=== PATIENT | female | born 1990 | race Caucasian/White ===

== ENCOUNTER 2018-01-31 05:28 | Inpatient (IN) ==
[2018-01-31] MEDS ORDERED: Morphine Sulfate PF Inj 5 MG/10 ML Ampul ONE (06:48)
[2018-01-31] MEDS ORDERED: Lidocaine PF 1% Inj 5 ML Vial ONE ×2 (06:48→13:37)
[2018-01-31] MEDS ORDERED: Lidocaaine 1.5%/Epinephrine 1:200,000 PF Inj 5 ML Amp ONE (06:48)
[2018-01-31 06:59] LABS: Baso % (Auto) 0.2 % (0.0-2.0); Eos # (Auto) 0.1 th/mm3 (0.0-0.4); Eos % (Auto) 1.3 % (0.0-4.0); Hematocrit 31.7 % (35.0-46.0); Hemoglobin 11.1 gm/dL (11.6-15.3); Lymph % (Auto) 27.6 % (9.0-44.0); Mean Corpuscular HGB Conc 35.1 % (32.0-36.0); Mean Corpuscular Hemoglobin 33.8 pg (27.0-34.0); Mean Corpuscular Volume 96.3 fL (80.0-100.0); Mean Platelet Volume 8.8 fL (7.0-11.0); Mono # (Auto) 0.4 th/mm3 (0.0-0.9); Mono % (Auto) 6.1 % (0.0-8.0); Neut # (Auto) 4.8 th/mm3 (1.8-7.7); Neut % (Auto) 64.8 % (16.0-70.0); Platelet Count 259 th/mm3 (150-450); Red Cell Distribution Width 13.9 % (11.6-17.2); White Blood Count 7.3 th/mm3 (4.0-11.0)
--- NOTE | 2018-01-31 07:14 | P.OBGPN ---
S: Doing well, no complaints O: Exam: /-2/midposition/soft. AROM this check with clear fluid. FHTs: 150s, moderate variability, accelerations present, no decelerations TOCO: Irregular contractions A/P 27-year-old at 39 weeks and 4 days by L/7 here originally for a ECV and induction if successful, however upon presentation was found to be cephalic. 1. IUP: Category 1 tracing -GBS NEG -Female fetus "Tiff" 2. Induction of labor: Secondary to maternal request, cervix favorable, AROM this check, allow to eat breakfast, begin Pitocin to follow, patient will desire epidural. Anticipate . She had uncomplicated prior vaginal delivery 3. Tobacco use: Have been counseled for cessation throughout , she has cut down 4. Glucose intolerance: Failed 1 hour, passed 3-hour - EFW: 3109g (40%)
[2018-01-31] MEDS ORDERED: fentaNYL Citrate Inj 100 MCG/2 ML Ampul IV.PUSH PRN ×2 (07:15)
[2018-01-31] MEDS ORDERED: Oxytocin 30 Units/500ml Premix 30 UNITS/500 ML BAG IV.SIG PRN (07:15)
[2018-01-31] MEDS ORDERED: Sodium Chlor 0.9% Inj 500 ML IV.SIG PRN (07:15)
[2018-01-31] MEDS ORDERED: Naloxone Inj 0.4 MG/ML Vial IV.PUSH PRN ×2 (07:15→17:01)
[2018-01-31] MEDS ORDERED: Oxytocin 30 Units/500ml Premix 30 UNITS/500 ML BAG IV.SIG ONE (07:15)
[2018-01-31] MEDS ORDERED: Citric Acid/Sodium Citrate Liq 30 ML UDC PO SCH (07:15)
[2018-01-31] MEDS ORDERED: Sod Chloride 0.9% Inj 1,000 ML IV.CONT PRN (07:15)
--- NOTE | 2018-01-31 07:23 | MH ---
cc: Stan Perez MD DATE OF ADMISSION: 01/31/2018 CHIEF COMPLAINT: malpresentation. HISTORY OF PRESENT ILLNESS: This patient is a 27-year-old G3, P1-0-1-1, who was seen in outpatient setting for routine OB visit on 01/29/2018. She complained of decreased movement and was measuring size less than dates and ultrasound revealed a fetus in the breech presentation. She had been cephalic 2 weeks prior. Her cervix was found to be favorable. We discussed options. The patient elected for ECV and induction versus ECV discharge home, await labor or planned . has been complicated by tobacco use, and glucose intolerance. PAST MEDICAL HISTORY: Tobacco use. MEDICATIONS: vitamins. ALLERGIES: NO KNOWN DRUG ALLERGIES. SOCIAL HISTORY: About half a pack per day. No alcohol or drug use. KETTLE COOK HISTORY: No history of STDs. LMP 04/29/2017. OBSTETRICAL HISTORY: In 2007 elective termination with D and C; October 2013, 40-week female weighing 8 pounds 6 ounces was induction of labor without complications. FAMILY HISTORY: No pertinent positive family history. SURGICAL HISTORY: D and C for elective termination. PHYSICAL EXAMINATION: VITAL SIGNS: Based on an encounter from 01/29/2018, blood pressure 120/70, weight 182 pounds. GENERAL: Alert and oriented x3, resting comfortably in bed, in no acute distress. PULMONARY: Lungs are clear to auscultation bilaterally. No wheezes, crackles or rhonchi. CARDIOVASCULAR: Regular rate and rhythm. No murmurs, rubs or gallops. ABDOMEN: Soft, gravid, nontender. GENITOURINARY: Normal external female genitalia. Cervix 3 cm, 70% effaced, -1 station, soft and mid position. Vega score of 9. EXTREMITIES: No clubbing, cyanosis or edema. ASSESSMENT AND PLAN: This patient is a 27-year-old G3, P1-0-1-1 who will be at 39 weeks and 4 days by her sure LMP, consistent with a 6 week ultrasound with estimated due date of 02/03/2018, who presents for external cephalic version for malpresentation. 1. Intrauterine . Will be placed on monitoring upon presentation. 2. She is group B streptococcus negative. 3. Estimated weight on 01/29/2018 is 310 grams, 40th percentile, RAUL 23, placenta fundal. A female fetus named Tiff; plans to breastfeed. 4. malpresentation. Discussed options with the patient including external cephalic version with induction due to favorable cervix versus external cephalic version, discharge home and awaiting labor with possible spontaneous return to breech versus planned . The patient desired external cephalic version and induction. I discussed the risks and benefits of external cephalic version. We will plan for regional anesthesia and terbutaline. 5. Tobacco use. I counseled for cessation throughout the . The patient has cut down. ADDENDUM 01/31/18 7am: Patient was found to be cephalic upon presentation, she was artificially ruptured. Please see separate note for other details. MD MARILEE Puri/camille/marcela , 01:54 PM , 02:03 PM SHANE
[2018-01-31 07:41] LABS: Amorphous Sediment,Urine Few /hpf; Bacteria,Urine Occasional /hpf; Bilirubin,Urine Negative (Negative); Clarity,Urine Cloudy (Clear); Color,Urine Yellow (Yellw/Straw); Glucose,Urine (UA) Negative (Negative); Leukocyte Esterase,Urine Large (Negative); Mucus,Urine Few /lpf (Occasional); Nitrite,Urine Negative (Negative); Squamous Epithelial Cell,Urine 18 /hpf (0-5)
[2018-01-31 07:48] LABS: Amphetamine Urine With Conf Neg (Neg); Benzodiazepine Urine With Conf Neg (Neg)
[2018-01-31] MEDS ORDERED: fentaNYL 2MCG-Bupiv 0.125% Epi 150 ML EPIDURAL ONE (13:32)
[2018-01-31] MEDS ORDERED: Lidocaine 1%/Epinephrine 1:200,000 PF Inj 30 ML Vial ONE (13:37)
[2018-01-31] MEDS ORDERED: fentaNYL Citrate Inj 100 MCG/2 ML Ampul EPIDURAL ONE (14:25)
[2018-01-31] MEDS ORDERED: fentaNYL 2MCG-Bupiv 0.125% Epi 150 ML EPIDURAL PRN (14:25)
[2018-01-31] MEDS ORDERED: Measles/Mumps/Rubella Vaccine Inj 0.5 ML Vial SQ ONE (16:00)
[2018-01-31] MEDS ORDERED: Diphtheria/Tetanus/Pertussis Vaccine Inj 0.5 ML Syringe IM ONE (16:00)
--- NOTE | 2018-01-31 17:00 | P.OBDELI ---
Weeks Gestation: 38 Patient Started Active Labor: Yes Medical Induction of Labor: Yes Artificial Rupture of Membrane: Yes Anesthesia: Epidural Episiotomy: none Vaginal Delivery: Normal Presentation: Occiput anterior Nuchal Cord: x1 Delayed Cord Clamping (45 sec): Yes Placenta: Spontaneous delivery, Intact, 3 vessel cord Laceration: None Estimated blood loss (mL): 200 Infant: Female Infant Female A Delivery Date: 01/31/18 Delivery Time: 17:00 Weight: 7 kg score (1 min): 8 score (5 min): 9
[2018-01-31] MEDS ORDERED: Acetaminophen 325 MG Tablet PO PRN (17:01)
[2018-01-31] MEDS ORDERED: Witch Hazel 50%/Glyderin 12.5% 40 Pad Jar RECTAL PRN (17:01)
[2018-01-31] MEDS ORDERED: Benzocaine 20% Top Spray 60 ML Can TOPICAL PRN (17:01)
[2018-01-31] MEDS ORDERED: Oxytocin 30 Units/500ml Premix 30 UNITS/500 ML BAG IV.CONT PRN (17:01)
[2018-01-31] MEDS ORDERED: Bisacodyl 10 MG Supp RECTAL PRN (17:01)
[2018-01-31] MEDS: Senna/Docusate Sodium 8.6/50 MG Tablet PO SCH (20:57)
[2018-01-31] MEDS ORDERED: Zolpidem Tartrate 5 MG Tablet PO PRN (21:00)
[2018-02-01] MEDS: Senna/Docusate Sodium 8.6/50 MG Tablet PO SCH ×2 (08:54→20:56)
--- NOTE | 2018-02-01 10:16 | P.PNOB ---
Subjective Post day: 1 Interval history: doing well nursing slept well ready for discharge when baby ok to go Objective Vital Signs/I&O: Vital Signs 01/31/18 11:35 01/31/18 12:10 01/31/18 12:38 Temperature 97.7 F Pulse Rate 94 H 81 Respiratory Rate Blood Pressure 116/66 113/71 01/31/18 13:01 01/31/18 13:40 01/31/18 13:55 Temperature Pulse Rate 94 H 83 86 Respiratory Rate Blood Pressure 145/79 H 104/55 L 113/73 01/31/18 14:41 01/31/18 14:45 01/31/18 15:05 Temperature 97.7 F Pulse Rate 86 Respiratory Rate 17 Blood Pressure 110/66 01/31/18 15:30 01/31/18 15:40 01/31/18 16:10 Temperature Pulse Rate 85 116 H Respiratory Rate Blood Pressure 79/60 L 118/80 01/31/18 16:35 01/31/18 17:05 01/31/18 17:20 Temperature 98.5 F Pulse Rate 116 H 104 H Respiratory Rate 19 18 Blood Pressure 122/65 120/73 01/31/18 17:31 01/31/18 17:35 01/31/18 17:49 Temperature Pulse Rate 99 H 100 H Respiratory Rate 17 17 Blood Pressure 109/71 113/68 01/31/18 20:00 02/01/18 08:00 Temperature 98.2 F 98.1 F Pulse Rate 67 76 Respiratory Rate 18 20 Blood Pressure 118/69 104/71 Intake & Output 01/31/18 02/01/18 02/01/18 18:59 06:59 18:59 Intake Total 1000 / 1000 Balance 1000 / 1000 Weight 83.461 kg Intake: IV 1000 / 1000 LR 1000 mL Inj 1,000 ML @ 125 1000 / 1000 mls/hr IV.CONT .Q8H [facility] Rx#: [id number] Other: Weight On Admission 83.461 kg Result Diagrams: 01/31/18 06:15 Objective Remarks: GENERAL: Well-nourished, well-developed patient. CARDIOVASCULAR: Regular rate and rhythm without murmurs, gallops, or rubs. RESPIRATORY: Breath sounds equal bilaterally. No accessory muscle use. ABDOMEN/GI: Abdomen soft, non-tender. Fundus: Firm, non-tender at umbilicus. GENITOURINARY: Light to moderate bleeding. EXTREMITIES: No cyanosis or edema, non-tender, without signs of DVT. Medications and IVs: Active Medications Acetaminophen (Tylenol) 650 mg PO Q4H PRN PRN Reason: PAIN SCALE 1 TO 2 Al Hydroxide/Mg Hydroxide (Milk Of Magnesia Liq) 30 ml PO Q12H PRN PRN Reason: Mild Constipation Benzocaine (Americaine 20% [place]) 1 spray TOPICAL Q4H PRN PRN Reason: For Perineum Discomfort Last Admin: 01/31/18 20:58 Dose: 1 spray Bisacodyl (Dulcolax Supp) 10 mg RECTAL DAILY PRN PRN Reason: SEVERE CONSITIPATION Citric Acid/Sodium Citrate (Sodium Citrate/Citric Acid Liq) 30 ml PO [employer] SUPER[employer]OR [facility] Stop: 02/04/18 07:14 Ephedrine Sulfate (Ephedrine/Ns Syringe) 10 mg IV.PUSH UNSCH PRN PRN Reason: SEE LABEL COMMENTS Stop: 02/01/18 14:25 Fentanyl Citrate (Fentanyl Inj) 50 mcg IV.PUSH Q1H PRN PRN Reason: Pain Scale 3 - 5 Fentanyl Citrate (Fentanyl Inj) 100 mcg IV.PUSH Q1H PRN PRN Reason: PAIN SCALE 6 TO 10 Last Admin: 01/31/18 12:51 Dose: 100 mcg Lactated Ringer's (Lr 1000 Ml Inj) 1,000 mls @ 125 mls/hr IV.CONT .Q8H [facility] Last Admin: 02/01/18 01:44 Dose: Not Given Lactated Ringer's (Lr 1000 Ml Inj) 1,000 mls @ 3,000 mls/hr IV.SIG UNSCH PRN PRN Reason: compromise or epidural Sodium Chloride (Ns Inj) 1,000 mls @ 100 mls/hr IV.CONT .Q10H PRN PRN Reason: SEE LABEL COMMENTS Oxytocin (Pitocin 30 Units/Ns 500 Ml Premix) 30 units in 500 mls @ 2 mls/hr IV.SIG TITRATE PRN; Protocol PRN Reason: For induction of labor Last Admin: 01/31/18 10:04 Dose: 2 milliunit/min, 2 mls/hr Sodium Chloride (Ns Inj) 500 mls @ 1,000 mls/hr IV.SIG UNSCH PRN PRN Reason: SEE LABEL COMMENTS Fentanyl/Bupivacaine/Sodium Chlor (Fentanyl 2 Mcg-Bupiv 0.125% Epi) 150 mls @ 10 mls/hr EPIDURAL PRN PRN PRN Reason: for Labor Pain Oxytocin (Pitocin 30 Units/Ns 500 Ml Premix) 30 units in 500 mls @ 100 mls/hr IV.CONT UNSCH PRN PRN Reason: Heavy bleeding Ibuprofen (Motrin) 800 mg PO Q8H PRN PRN Reason: For Cramping Last Admin: 02/01/18 06:30 Dose: 800 mg Lactulose (Lactulose Liq) 30 ml PO DAILY PRN PRN Reason: SEVERE CONSITIPATION Lidocaine HCl (Xylocaine 1% Inj) 0.1 ml I-DERMAL PRN PRN PRN Reason: For IV start Stop: 02/03/18 07:14 Lidocaine HCl (Xylocaine 1% Inj) 10 ml INFILTRATN PRN PRN PRN Reason: For episiotomy repair Stop: 02/02/18 07:14 Mineral Oil (Muri-Lube Oil) 10 ml TOPICAL PRN PRN PRN Reason: PRN perineal massage Miscellaneous Information (Misc Information) 1 each OTHER UNSCH PRN PRN Reason: SEE LABEL COMMENTS Stop: 02/01/18 14:25 Miscellaneous Information (Misc Information) 1 each OTHER UNSCH PRN PRN Reason: SEE LABEL COMMENTS Stop: 02/01/18 14:25 Naloxone HCl (Narcan Inj) 0.1 mg IV.PUSH Q2M PRN PRN Reason: for opiate reversal Naloxone HCl (Narcan Inj) 0.1 mg IV.PUSH Q2M PRN PRN Reason: for opiate reversal Ondansetron HCl (Zofran Inj) 4 mg IV.PUSH Q6H PRN PRN Reason: NAUSEA OR VOMITING Ondansetron HCl (Zofran Odt) 4 mg PO Q6H PRN PRN Reason: NAUSEA OR VOMITING Senna/Docusate Sodium (Philomena-Colace) 1 tab PO BID [facility] Last Admin: 02/01/18 08:54 Dose: 1 tab Sennosides (Senokot) 17.2 mg PO Q12H PRN PRN Reason: Moderate Constipation Sodium Chloride (Ns Flush) 2 ml IV.FLUSH BID [facility] Last Admin: 02/01/18 08:55 Dose: Not Given Sodium Chloride (Ns Flush) 2 ml IV.FLUSH PRN PRN PRN Reason: FLUSH AFTER USING IV ACCESS Witch Sirisha/Glycerin (Tucks Pads) 1 applicatio RECTAL QID PRN PRN Reason: HEMORRHOIDS Last Admin: 01/31/18 20:58 Dose: 1 applicatio Zolpidem Tartrate (Ambien) 5 mg PO HS PRN PRN Reason: SLEEP Assessment and Plan - Diagnosis (1) Vaginal delivery Code(s): O80 - Encounter for full-term uncomplicated delivery Status: Acute - Plan discharge home today or in am if baby held counseled on routine issues
[2018-02-02] MEDS: Senna/Docusate Sodium 8.6/50 MG Tablet PO SCH (08:06)
--- NOTE | 2018-02-02 10:22 | P.PNOB ---
Subjective Post day: 2 Interval history: doing well and ready for discharge Objective Vital Signs/I&O: Vital Signs 02/01/18 19:24 02/01/18 19:25 02/02/18 08:00 Temperature 98.0 F 98.0 F Pulse Rate 71 77 Respiratory Rate 7 L 18 18 Blood Pressure 114/74 117/79 Result Diagrams: 01/31/18 06:15 Objective Remarks: GENERAL: Well-nourished, well-developed patient. CARDIOVASCULAR: Regular rate and rhythm without murmurs, gallops, or rubs. RESPIRATORY: Breath sounds equal bilaterally. No accessory muscle use. ABDOMEN/GI: Abdomen soft, non-tender. Fundus: Firm, non-tender at umbilicus. GENITOURINARY: Light to moderate bleeding. EXTREMITIES: No cyanosis or edema, non-tender, without signs of DVT. Medications and IVs: Active Medications Acetaminophen (Tylenol) 650 mg PO Q4H PRN PRN Reason: PAIN SCALE 1 TO 2 Al Hydroxide/Mg Hydroxide (Milk Of Magnesia Liq) 30 ml PO Q12H PRN PRN Reason: Mild Constipation Benzocaine (Americaine 20% Top [place]) 1 spray TOPICAL Q4H PRN PRN Reason: For Perineum Discomfort Last Admin: 01/31/18 20:58 Dose: 1 spray Bisacodyl (Dulcolax Supp) 10 mg RECTAL DAILY PRN PRN Reason: SEVERE CONSITIPATION Citric Acid/Sodium Citrate (Sodium Citrate/Citric Acid Liq) 30 ml PO CHECKOUT OPERATOR [facility] Stop: 02/04/18 07:14 Fentanyl Citrate (Fentanyl Inj) 50 mcg IV.PUSH Q1H PRN PRN Reason: Pain Scale 3 - 5 Fentanyl Citrate (Fentanyl Inj) 100 mcg IV.PUSH Q1H PRN PRN Reason: PAIN SCALE 6 TO 10 Last Admin: 01/31/18 12:51 Dose: 100 mcg Lactated Ringer's (Lr 1000 Ml Inj) 1,000 mls @ 125 mls/hr IV.CONT .Q8H [facility] Last Admin: 02/02/18 02:45 Dose: Not Given Lactated Ringer's (Lr 1000 Ml Inj) 1,000 mls @ 3,000 mls/hr IV.SIG UNSCH PRN PRN Reason: compromise or epidural Sodium Chloride (Ns Inj) 1,000 mls @ 100 mls/hr IV.CONT .Q10H PRN PRN Reason: SEE LABEL COMMENTS Oxytocin (Pitocin 30 Units/Ns 500 Ml Premix) 30 units in 500 mls @ 2 mls/hr IV.SIG TITRATE PRN; Protocol PRN Reason: For induction of labor Last Admin: 01/31/18 10:04 Dose: 2 milliunit/min, 2 mls/hr Sodium Chloride (Ns Inj) 500 mls @ 1,000 mls/hr IV.SIG UNSCH PRN PRN Reason: SEE LABEL COMMENTS Fentanyl/Bupivacaine/Sodium Chlor (Fentanyl 2 Mcg-Bupiv 0.125% Epi) 150 mls @ 10 mls/hr EPIDURAL PRN PRN PRN Reason: for Labor Pain Oxytocin (Pitocin 30 Units/Ns 500 Ml Premix) 30 units in 500 mls @ 100 mls/hr IV.CONT UNSCH PRN PRN Reason: Heavy bleeding Ibuprofen (Motrin) 800 mg PO Q8H PRN PRN Reason: For Cramping Last Admin: 02/02/18 08:06 Dose: 800 mg Lactulose (Lactulose Liq) 30 ml PO DAILY PRN PRN Reason: SEVERE CONSITIPATION Lidocaine HCl (Xylocaine 1% Inj) 0.1 ml I-DERMAL PRN PRN PRN Reason: For IV start Stop: 02/03/18 07:14 Mineral Oil (Muri-Lube Oil) 10 ml TOPICAL PRN PRN PRN Reason: PRN perineal massage Naloxone HCl (Narcan Inj) 0.1 mg IV.PUSH Q2M PRN PRN Reason: for opiate reversal Naloxone HCl (Narcan Inj) 0.1 mg IV.PUSH Q2M PRN PRN Reason: for opiate reversal Ondansetron HCl (Zofran Inj) 4 mg IV.PUSH Q6H PRN PRN Reason: NAUSEA OR VOMITING Ondansetron HCl (Zofran Odt) 4 mg PO Q6H PRN PRN Reason: NAUSEA OR VOMITING Senna/Docusate Sodium (Philomena-Colace) 1 tab PO BID [facility] Last Admin: 02/02/18 08:06 Dose: 1 tab Sennosides (Senokot) 17.2 mg PO Q12H PRN PRN Reason: Moderate Constipation Sodium Chloride (Ns Flush) 2 ml IV.FLUSH BID [facility] Last Admin: 02/01/18 23:11 Dose: Not Given Sodium Chloride (Ns Flush) 2 ml IV.FLUSH PRN PRN PRN Reason: FLUSH AFTER USING IV ACCESS Witch Sirisha/Glycerin (Tucks Pads) 1 applicatio RECTAL QID PRN PRN Reason: HEMORRHOIDS Last Admin: 01/31/18 20:58 Dose: 1 applicatio Zolpidem Tartrate (Ambien) 5 mg PO HS PRN PRN Reason: SLEEP Assessment and Plan - Diagnosis (1) Vaginal delivery Code(s): O80 - Encounter for full-term uncomplicated delivery Status: Acute - Plan discharge home today or in am if baby held counseled on routine issues PPD 2 ready for discharge counseled yesterday
== END 2018-02-02 12:09 | disposition home or self-care (01) ==
LOC: H2E 05:28 → H1EA 18:31
PROVIDERS: ADMIT Obstetrics & Gynecology; ATTEND Obstetrics & Gynecology